=== PATIENT | male | born 1985 | race Caucasian/White ===

== ENCOUNTER 2020-10-26 12:53 | Emergency (ER) | payer OTHER ==
[~2020-10-26] VITALS: Ht 182.9 cm; Wt 81.6 kg
== END 2020-10-26 15:45 | disposition home or self-care (01) ==
LOC: ER 12:53
DX: S62.613 Displaced fracture of proximal phalanx of left middle finger (principal); W22.8XXA Striking against or struck by other objects, initial encounter; Y93.18 Activity, surfing, windsurfing and boogie boarding; Y92.832 Beach as the place of occurrence of the external cause; Y99.8 Other external cause status